=== PATIENT | female | born 1935 | race Caucasian/White ===

== ENCOUNTER 2017-12-14 13:30 | Emergency (ER) | payer OTHER, MEDICARE ==
[~2017-12-14] VITALS: Ht 137.2 cm; Wt 79.6 kg
[~2017-12-14 13:30] MED LIST: Aspirin E.C. PO; CALTRATE 6001 TABLE1 PO; CARVEDILOL25 MG PO; Coreg PO; DOXYCYCLINE HY100 M3 PO; DOXYCYCLINE HY100 MG PO; Demadex PO; Ecotrin PO; GABAPENTIN300 MG PO; HYDROCHLOROTHIA25 MG PO; K-Dur PO; LANTUS 3 M100 UNITS1 SC; LISINOPRIL40 MG PO; Lopid PO; Lovenox SC; MAXITROL EYE DRO5 ML BOTH EYES; Mobic PO; NORVASC5 MG PO; Nitrostat,NitroQuick SL; Norvasc PO; OMEPRAZOLE20 MG PO; Oscal 500 w/Vitamin PO; PERCOCET 10/1 TABLET PO; PRAVASTATIN SOD20 MG PO; PRED FORTE100 DROP/5 RIGHT EYE; PriLOSEC PO; Protonix PO; SERTRALINE HCL50 MG PO; ST. JOSEPH ASPI81 MG PO; TOBRAMYCIN-DEXAM5 ML BOTH EYES; TORSEMIDE20 MG PO; Theragran-M,Centrum, PO; Tylenol Regular Stre PO; Xanax PO; Zestril,Prinivil PO; oxyCODONE PO
[2017-12-14 15:25] VITALS: BP 154/80
== END 2017-12-14 15:35 | disposition home or self-care (01) ==
LOC: EME 13:30
DX: S80.11XA Contusion of right lower leg, initial encounter (principal); S70.01XA Contusion of right hip, initial encounter; S93.401A Sprain of unspecified ligament of right ankle, initial encounter; W06.XXXA Fall from bed, initial encounter; K59.00 Constipation, unspecified; M16.12 Unilateral primary osteoarthritis, left hip; M17.11 Unilateral primary osteoarthritis, right knee; M47.9 Spondylosis, unspecified; E11.9 Type 2 diabetes mellitus without complications; I10 Essential (primary) hypertension; K21.9 Gastro-esophageal reflux disease without esophagitis; Z79.82 Long term (current) use of aspirin; Z79.4 Long term (current) use of insulin; Z79.891 Long term (current) use of opiate analgesic; Z86.79 Personal history of other diseases of the circulatory system
CPT/HCPCS: 73502; 73564; 73610; 99281; 99283